=== PATIENT | female | born 1995 | race Caucasian/White ===

== ENCOUNTER 2017-01-11 09:25 | Outpatient (CLI) | payer MEDICAID ==
[~2017-01-11] VITALS: Ht 144.8 cm; Wt 69.7 kg
[2017-01-11 09:56] VITALS: Ht 144.8 cm; Wt 69.7 kg
[2017-01-11 09:58] VITALS: BP 136/86; PULSE 62; RESP 18
[2017-01-11] MEDS ORDERED: TERBUTALINE 1 MG/ML INJ SC STA (10:35)
[2017-01-11] MEDS ORDERED: LACTATED RINGER'S 1,000 ML IV* STA (10:35)
[2017-01-11 10:40] LABS: ADD UMIC YES; UR BILIRUBIN (Dip) NEGATIVE (NEGATIVE); UR BLOOD (Dip) TRACE (NEGATIVE); UR CLARITY CLEAR (CLEAR); UR COLOR LT. YELLOW (YELLOW); UR GLUCOSE (Dip) NEGATIVE (NEGATIVE); UR KETONES (Dip) NEGATIVE (NEGATIVE); UR LEUKOCYTE ESTERASE (Dip) NEGATIVE (NEGATIVE); UR NITRITE (Dip) NEGATIVE (NEGATIVE); UR TOTAL PROTEIN (Dip) 2+ (NEGATIVE); UR UROBILINOGEN (Dip) 0.2 E.U./dL (0.1-1.0)
[2017-01-11] MEDS ORDERED: LACTATED RINGER'S 1,000 ML IV* SCH (11:00)
[2017-01-11 11:28] LABS: UR SQUAMOUS EPITHELIAL CELL FEW; URINE RBCS 0-2 /HPF (0)
[2017-01-11 11:35] LABS: ADD SCAN DIFF NO
--- NOTE | 2017-01-11 11:35 | RADRPT ---
PROCEDURE: OB ultrasound for biophysical profile CLINICAL INDICATION: Poor tone. TECHNIQUE: Multiple sonographic images of the pelvis were obtained. Transabdominal views of the g ravid uterus are available for review. The images were reviewed on a PACS workstation. COMPARISON: None FINDINGS: breathing movement = 2/2 tone = 2/2 motion = 2/2 CRISTIN = 2/2 CRISTIN = 14.3 cm Single live intrauterine with cardiac activity of 128 bpm. position is cephal ic. The placenta is left lateral. IMPRESSION: 1. Single live intrauterine gestation. 2. Biophysical profile = 8/8. 3. CRISTIN = 14.3 cm. RPTAT: HH .Giulia Gale MD, MD Date Time Electronically viewed and signed by .Giulia Gale MD, on 01/11/2017 11:35 .G/
[2017-01-11 11:45] LABS: ABNORMAL IP MESSAGE 1; BASOPHILS % 0.3 % (0.0-2.0); EOSINOPHILS % 0.2 % (0.0-7.0); HEMOGLOBIN 11.5 g/dl (12.0-16.0); LYMPHOCYTES # 3.5 10^3/ul (0.8-2.9); LYMPHOCYTES % 28.4 % (18.0-55.0); MEAN CORPUSCULAR HEMOGLOBIN 30.2 pg (29.0-33.0); MEAN CORPUSCULAR HGB CONC 33.8 g/dl (32.0-37.0); MEAN CORPUSCULAR VOLUME 89.2 fl (72.0-104.0); MEAN PLATELET VOLUME 13.3 fl (7.4-10.4); NEUTROPHIL # 7.8 10^3/ul (1.6-7.5); NEUTROPHILS % 62.6 % (30.0-74.0); PLATELET COUNT 139 10^3/UL (140-415); RED BLOOD COUNT 3.81 10^6/ul (4.20-5.40); RED CELL DISTRIBUTION WIDTH 13.6 % (11.5-14.5); WHITE BLOOD COUNT 12.5 10^3/ul (4.8-10.8)
--- NOTE | 2017-01-11 11:45 | RADRPT ---
PROCEDURE: US OB. CLINICAL INDICATION: Size and dates , labor TECHNIQUE: Multiple sonographic images of the pelvis and gravid uterus were obtained. The images were reviewed on a PACS workstation. COMPARISON: No prior studies are available for comparison. FINDINGS: There is a single viable intrauterine gestation. Cardiac activity is present with 137 beats per min sandy. There is a vertex presentation. The placenta is left lateral. There is no evidence for an abruption or placenta previa. Measurements were made in order to determine age. The results are as follows: BPD =8.6 cm HC =31.1 cm AC =32.6 cm FL =6.7 cm Estimated gestational age of approximately 35 weeks and 1 day based on ultrasound measurements. Clinical age: 35 weeks and 0 days. The estimated date of delivery is 02/14/17, based on ultrasound measurements. The EFW = 2708 g, 63.4%, based on LMP age. RPTAT: AA IMPRESSION: Single viable intrauterine gestation of approximately 35 weeks and 1 day based on ultrasound measur ements. .Jeremiah Escalante MD, Date Time Electronically viewed and signed by .Jeremiah Escalante MD, MD on 01/11/2017 11:45 .S/
--- NOTE | 2017-01-11 12:19 | TRIAGE ---
OB Triage Datetime Report Generated by CPN: 01/11/2017 12:19 Datetime: 01/11/2017 12:04 Labor Evaluation Frequency: 0 Monitor Mode: External Duration (sec)2399: 0 Resting Tone [place]: Relaxed Heart Rate FHR Baseline Rate: 130 Monitor Mode: External US FHR Baseline Changes: No Baseline Change Variability: Moderate 6-25 bpm Accelerations: 15X15 Decelerations: None Category: Category I Pain Presence: None/Denies Pain Type: N/A Pain Assessment Comments: PT DENIES OF ANY PAIN 0/10 Datetime: 01/11/2017 11:12 Labor Evaluation Frequency: 0 Monitor Mode: External Duration (sec)2399: 0 Resting Tone [place]: Relaxed Heart Rate FHR Baseline Rate: 135 Monitor Mode: External US FHR Baseline Changes: No Baseline Change Variability: Moderate 6-25 bpm Accelerations: 15X15 Decelerations: None Category: Category I Datetime: 01/11/2017 10:59 Maternal Assessment Level of Consciousness: Fully Conscious DTR's/Clonus: DTRs 2+; No Clonus Headache: Denies Blurred Vision: No Nausea/Vomiting: Denies RUQ Epigastric Pain: Denies Facial Edema: None Labor Evaluation Frequency: 3-5 Monitor Mode: External Duration (sec)2399: 60-80 Quality: Mild Pattern: Normal: <= 5 Contractions in 10 Minutes Resting Tone [place]: Relaxed Heart Rate FHR Baseline Rate: 135 Monitor Mode: External US FHR Baseline Changes: No Baseline Change Variability: Moderate 6-25 bpm Accelerations: 15X15 Decelerations: None Category: Category I Membrane Status: Intact Datetime: 01/11/2017 10:22 Labor Evaluation Frequency: 3-4 Monitor Mode: External Duration (sec)2399: 60-70 Quality: Mild Pattern: Normal: <= 5 Contractions in 10 Minutes Resting Tone [place]: Relaxed Heart Rate FHR Baseline Rate: 145 Monitor Mode: External US FHR Baseline Changes: No Baseline Change Variability: Moderate 6-25 bpm Accelerations: 15X15 Decelerations: None Category: Category I Vaginal Exam Dilatation (cms): 0.5 Effacement (%): 40 Station: -3 Exam By: ALFREDO MCFADDEN Membrane Status: Intact Vaginal Bleeding: None Cervix, Consistency: Firm Cervix, Position: Posterior Presentation 'A': Unable to Assess Lie 'A': Unable to Assess Datetime: 01/11/2017 10:04 Labor Evaluation Frequency: 3-4 Monitor Mode: External Duration (sec)2399: 50-60 Quality: Mild Pattern: Normal: <= 5 Contractions in 10 Minutes Resting Tone [place]: Relaxed Heart Rate FHR Baseline Rate: 125 Monitor Mode: External US FHR Baseline Changes: No Baseline Change Variability: Moderate 6-25 bpm Accelerations: 15X15 Decelerations: None Category: Category I Membrane Status: Intact Datetime: 01/11/2017 09:46 EGA: 35.0 Datetime: 01/11/2017 09:39 Stage of : OB Triage Maternal Assessment Level of Consciousness: Fully Conscious DTR's/Clonus: DTRs 2+; No Clonus Headache: Denies Blurred Vision: No Respiratory Effort: Unlabored Breath Sounds, Left: Clear and Equal Breath Sounds, Right: Clear and Equal Nausea/Vomiting: Denies RUQ Epigastric Pain: Denies Facial Edema: None Labor Evaluation Frequency: X2 Monitor Mode: External Duration (sec)2399: 50 Quality: Mild Pattern: Normal: <= 5 Contractions in 10 Minutes Resting Tone [place]: Relaxed Heart Rate FHR Baseline Rate: 125 Monitor Mode: External US FHR Baseline Changes: No Baseline Change Variability: Moderate 6-25 bpm Accelerations: 15X15 Decelerations: None Category: Category I Pain Assessment Pain Scale: 5 Pain Presence: Intermittent Pain Type: Contraction Pain Location: Abdomen; Back Pain Goal: 0 Pain Relief Measures: Comfort Measures Membrane Status: Intact Datetime: 01/11/2017 09:15 Time of Arrival: 01/11/2017 09:15 Arrived By: Wheelchair Arrived From: Home Chief Complaint: R/O LABOR Movement: Present Contractions: Irregular Time Contractions Began: 01/11/2017 03:00 Contractions: 6 Rupture of Membranes: Denies Vaginal Bleeding: None Vaginal Discharge: Present Recent Sexual Intercouse: Denies Abdominal Trauma: Not Applicable Patient Complaints: Contractions Time Provider Notified: 01/11/2017 09:45 Provider Notified: YUKI Initial Plan: US BPP, CRISTIN, UA, CBC, TERB X1, IV HYDRATION
== END 2017-01-11 12:47 | disposition home or self-care (01) ==
LOC: L-D 09:25 → OBT 09:25
PROVIDERS: ATTEND Obstetrics & Gynecology
DX: O62.8 Other abnormalities of forces of labor (principal); Z3A.39 39 weeks gestation of pregnancy
CPT/HCPCS: 76815; 76818; 81001; 85025; 96360; 96361; J3105; J7120; Z7500; G0463

== ENCOUNTER 2017-01-12 02:20 | Inpatient (IN) | payer MEDICAID ==
[~2017-01-12] VITALS: Ht 147.3 cm; Wt 70.6 kg
[2017-01-12] MEDS ORDERED: LACTATED RINGER'S 1,000 ML IV PRN (03:00)
[2017-01-12] MEDS ORDERED: OXYTOCIN 30 UNITS/LR 500 ML IV PRN ×2 (03:00→17:30)
[2017-01-12] MEDS ORDERED: OXYTOCIN 30 UNITS/LR 500 ML IV SCH ×2 (03:00)
[2017-01-12] MEDS ORDERED: MISOPROSTOL 200 MCG TAB PR PRN ×2 (03:00→17:30)
[2017-01-12] MEDS ORDERED: LIDOCAINE 1% (MPF) 30 ML INJ INJ PRN (03:00)
[2017-01-12] MEDS ORDERED: METHYLERGONOVINE 0.2 MG INJ IM PRN ×2 (03:00→17:30)
[2017-01-12] MEDS ORDERED: CARBOPROST 250 MCG INJ IM PRN ×2 (03:00→17:30)
[2017-01-12] MEDS ORDERED: IBUPROFEN 600 MG TAB PO PRN (03:00)
[2017-01-12 03:26] VITALS: Ht 147.3 cm; Wt 70.6 kg
[2017-01-12 03:27] VITALS: BP 151/94; PULSE 51; RESP 19
[2017-01-12] MEDS: LACTATED RINGER'S 1,000 ML IV SCH ×2 (03:30→12:04)
[2017-01-12 03:45] LABS: ADD SCAN DIFF NO
[2017-01-12 03:53] LABS: ADD UMIC YES; URINE BILIRUBIN (Dip) NEGATIVE (NEGATIVE); URINE BLOOD (Dip) TRACE (NEGATIVE); URINE COLOR LT. YELLOW (YELLOW); URINE GLUCOSE (Dip) NEGATIVE (NEGATIVE); URINE KETONES (Dip) NEGATIVE (NEGATIVE); URINE LEUKOCYTE ESTERASE (Dip) TRACE (NEGATIVE); URINE NITRITE (Dip) NEGATIVE (NEGATIVE); URINE TOTAL PROTEIN (Dip) 1+ (NEGATIVE); URINE UROBILINOGEN (Dip) 0.2 E.U./dL (0.1-1.0)
[2017-01-12 04:01] LABS: BACTERIA,URINE FEW; SQUAMOUS EPITHELIAL CELL,UR FEW; URINE RBCS 0-2 /HPF (0)
[2017-01-12 04:08] LABS: INR 0.94; PROTIME 12.6 Sec (12.2-14.2)
[2017-01-12 04:16] LABS: PARTIAL THROMBOPLASTIN TIME 28.7 Sec (25.0-35.0)
[2017-01-12 04:17] LABS: ABNORMAL IP MESSAGE 1; BASOPHIL # 0.1 10^3/ul (0.0-0.1); BASOPHILS % 0.4 % (0.0-2.0); EOSINOPHILS % 0.2 % (0.0-7.0); HEMATOCRIT 33.1 % (37.0-47.0); HEMOGLOBIN 11.4 g/dl (12.0-16.0); MEAN CORPUSCULAR HEMOGLOBIN 30.5 pg (29.0-33.0); MEAN CORPUSCULAR HGB CONC 34.4 g/dl (32.0-37.0); MEAN CORPUSCULAR VOLUME 88.5 fl (72.0-104.0); MEAN PLATELET VOLUME 13.7 fl (7.4-10.4); MONOCYTES % 8.4 % (0.0-13.0); NEUTROPHIL # 8.2 10^3/ul (1.6-7.5); NEUTROPHILS % 66.4 % (30.0-74.0); PLATELET COUNT 155 10^3/UL (140-415); RED BLOOD COUNT 3.74 10^6/ul (4.20-5.40); RED CELL DISTRIBUTION WIDTH 13.3 % (11.5-14.5); WHITE BLOOD COUNT 12.4 10^3/ul (4.8-10.8)
[2017-01-12] MEDS: BUTORPHANOL 2 MG INJ IV PRN ×2 (04:17→06:32)
[2017-01-12 04:18] LABS: ALANINE AMINOTRANSFERASE 31 IU/L (13-69); ALBUMIN 3.6 g/dl (3.3-4.9); ALBUMIN/GLOBULIN RATIO 1.09; ALKALINE PHOSPHATASE 303 IU/L (42-121); ANION GAP 12 (8-16); ASPARTATE AMINO TRANSFERASE 34 IU/L (15-46); BILIRUBIN,INDIRECT 0.2 mg/dl (0-1.1); BILIRUBIN,TOTAL 0.2 mg/dl (0.2-1.3); BLOOD UREA NITROGEN 9 mg/dl (7-20); CALCIUM 8.9 mg/dl (8.4-10.2); CARBON DIOXIDE 20 mmol/L (21-31); CHLORIDE 112 mmol/L (97-110); GLUCOSE 77 mg/dl (70-220); POTASSIUM 4.2 mmol/L (3.5-5.1); SODIUM 140 mmol/L (135-144); TOTAL PROTEIN 6.9 g/dl (6.1-8.1); URIC ACID 5.1 mg/dl (3.1-7.9)
[2017-01-12 13:07] LABS: ADD SCAN DIFF NO
[2017-01-12 13:08] LABS: BASOPHILS % 0.2 % (0.0-2.0); EOSINOPHILS % 0.1 % (0.0-7.0); HEMATOCRIT 34.7 % (37.0-47.0); HEMOGLOBIN 11.9 g/dl (12.0-16.0); MEAN CORPUSCULAR HEMOGLOBIN 30.7 pg (29.0-33.0); MEAN CORPUSCULAR HGB CONC 34.3 g/dl (32.0-37.0); MEAN CORPUSCULAR VOLUME 89.4 fl (72.0-104.0); MEAN PLATELET VOLUME 12.8 fl (7.4-10.4); MONOCYTE # 1.2 10^3/ul (0.3-0.9); MONOCYTES % 7.4 % (0.0-13.0); NEUTROPHIL # 13.3 10^3/ul (1.6-7.5); NEUTROPHILS % 79.8 % (30.0-74.0); PLATELET COUNT 177 10^3/UL (140-415); RED BLOOD COUNT 3.88 10^6/ul (4.20-5.40); RED CELL DISTRIBUTION WIDTH 13.6 % (11.5-14.5); WHITE BLOOD COUNT 16.7 10^3/ul (4.8-10.8)
[2017-01-12] MEDS ORDERED: MINERAL OIL LIGHT 10 ML VIAL TOP ONE (13:30)
[2017-01-12 13:34] LABS: INR 0.9; PROTIME 12.1 Sec (12.2-14.2); PT RATIO 0.9
[2017-01-12 13:35] LABS: PARTIAL THROMBOPLASTIN TIME 29.1 Sec (25.0-35.0)
[2017-01-12 13:48] LABS: ALBUMIN/GLOBULIN RATIO 1.29; BILIRUBIN,INDIRECT 0.2 mg/dl (0-1.1); BILIRUBIN,TOTAL 0.2 mg/dl (0.2-1.3); CALCIUM 8.6 mg/dl (8.4-10.2); CREATININE 0.68 mg/dl (0.44-1.00); POTASSIUM 4.3 mmol/L (3.5-5.1); TOTAL PROTEIN 7.1 g/dl (6.1-8.1); URIC ACID 5.5 mg/dl (3.1-7.9)
[2017-01-12] MEDS ORDERED: MINERAL OIL 30ML CUP PO ONE (14:00)
[2017-01-12] MEDS ORDERED: TERBUTALINE 1 ML ONE (14:06)
[2017-01-12] MEDS ORDERED: TERBUTALINE 1 MG/ML INJ SC ONE (14:30)
--- NOTE | 2017-01-12 15:48 | HP ---
Date/Time of Note Date/Time of Note DATE: 01/12/17 TIME: 15:45 OB - History Hx of Present Free Text/Dictation 21 y/o female admitted in labor Last Menstrual Period: Apr 11, 2016 Estimated Due Date: Jan 16, 2017 : 1 Para: 0 Care: Good Care Ultrasounds: Normal mid trimester US Obstetrical Complications: None Medical Complications: None Past Family/Social History * Past Medical, Surgical, Family and Obstetric Histories reviewed from chart. Blood Type: O+ Rubella: immune RPR/VDRL: Negative GBS Status: Negative HBsAG: Negative OB Admission Exam Vital Signs Vital Signs Vital Signs Date Time Temp Pulse Resp B/P Pulse Ox O2 Delivery O2 Flow Rate FiO2 01/12/17 03:27 97.9 51 19 151/94 Room Air Physical Exam HEENT: WNL Heart: Rhythm Normal Lungs: Clear, Equal Abdomen: WNL Extremities: Normal Reflexes: Normal Cervical Dilatation: 3cm Effacement: 100% Station: -2 Membranes: Intact Heart Rate: 140's Accelerations: Accelerations Present Decelerations: No Decelerations Varibility: Marked Contractions on Admission: < 5 Minutes Apart Date/Time Contractions Began: 01/12/17 Frequency of Contractions: q5 min Duration: >60 seconds Intensity: Moderate Last 72 hours Lab Results CBC & BMP 01/12/17 03:20 01/12/17 13:00 Liver Function Test 01/12/17 03:20 01/12/17 13:00 Alanine Aminotransferase (ALT/SGPT) 31 35 Albumin 3.6 4.0 Alkaline Phosphatase 303 H 331 H Aspartate Amino Transf (AST/SGOT) 34 34 Direct Bilirubin 0.00 0.00 Total Protein 6.9 7.1 OB Assessment/Plan Other Assessment: term gestation labor pains Other plan: proceed with labor LOYDA ARREDONDO MD Jan 12, 2017 15:48
--- NOTE | 2017-01-12 15:53 | LDN ---
Date/Time of Note Date/Time of Note DATE: 01/12/17 TIME: 15:49 Delivery Summary of a viable infant over intact perineum Weeks of Gestation 39+ Placenta Delivered: Spontaneously, Intact & Complete Meconium: none Episiotomy: No Perineal laceration: 1 Laceration repair: 1st degree perineal laceration was repaired in layers with 2 0 Vicryl and 2 0 Chromic Anesthesia type: Local Estimated blood loss: 300 Sponge & Needle done & correct: Yes All needle counts correct: Yes Any foreign bodies felt in the: No Problems: Infant Delivery Information Sex Infant Sex: male Apgars 1 Minute: 9 5 Minute: 9 Suctioning Nose & mouth suctioned at dora: Yes Delee suction performed: No Umbilical Cord Umbilical cord with: 3 Vessels Cord presentations: nuchal cord Nuchal cord present X: 2 Cord Blood was obtained: Yes Mother & Baby Disposition Disposition Mom & Baby to Maternity; Good: Yes (mother and baby were recovered in good condition ) Mom transferred to: Other (maternity ) Baby to NICU: No LOYDA ARREDONDO MD Jan 12, 2017 15:53
[2017-01-12 16:00] LABS: ADD UMIC YES; URINE BLOOD (Dip) 3+ (NEGATIVE); URINE COLOR YELLOW (YELLOW); URINE GLUCOSE (Dip) NEGATIVE (NEGATIVE); URINE KETONES (Dip) NEGATIVE (NEGATIVE); URINE LEUKOCYTE ESTERASE (Dip) TRACE (NEGATIVE); URINE NITRITE (Dip) NEGATIVE (NEGATIVE); URINE TOTAL PROTEIN (Dip) 4+ (NEGATIVE); URINE UROBILINOGEN (Dip) 1.0 E.U./dL (0.1-1.0)
[2017-01-12 16:14] LABS: URINE BILIRUBIN (Dip) NEGATIVE (NEGATIVE)
[2017-01-12 16:17] LABS: BACTERIA,URINE MODERATE; SQUAMOUS EPITHELIAL CELL,UR MANY; URINE RBCS >200 /HPF (0)
[2017-01-12 17:10] VITALS: BP 138/72; PULSE 64; RESP 20
[2017-01-12] MEDS ORDERED: BENZOCAINE 20% 56 ML SPRAY TOP PRN (17:30)
[2017-01-12] MEDS ORDERED: ACETAMINOPHEN/CODEINE #3 TAB PO PRN ×2 (17:30)
[2017-01-12] MEDS ORDERED: LANOLIN 7 GM TUBE TOP PRN (17:30)
[2017-01-12] MEDS ORDERED: WITCH HAZEL/GLYCERIN PAD PR PRN (17:30)
[2017-01-12] MEDS ORDERED: ZOLPIDEM 5 MG TAB PO PRN (17:30)
[2017-01-12] MEDS ORDERED: DIBUCAINE 1% 30 GM OINT PR PRN (17:30)
[2017-01-12] MEDS: LACTATED RINGER'S 1,000 ML IV* SCH (17:44)
[2017-01-12] MEDS: IBUPROFEN 600 MG TAB PO SCH ×2 (18:00→23:47)
[2017-01-12 20:00] VITALS: BP 147/67; PULSE 70; RESP 19
[2017-01-12] MEDS: SENNA/DOCUSATE NA (8.6MG/50MG) TAB PO SCH (21:25)
[2017-01-12] MEDS: MAGNESIUM HYDROXIDE 30ML CUP PO SCH (21:25)
[2017-01-13] MEDS: LACTATED RINGER'S 1,000 ML IV* SCH ×3 (01:12→17:14)
[2017-01-13 04:00] VITALS: BP 118/73; PULSE 56; RESP 17
[2017-01-13] MEDS: IBUPROFEN 600 MG TAB PO SCH ×3 (05:44→18:03)
[2017-01-13 07:36] LABS: ADD SCAN DIFF NO
[2017-01-13 07:39] LABS: ABNORMAL IP MESSAGE 1; BASOPHILS % 0.2 % (0.0-2.0); EOSINOPHILS # 0.1 10^3/ul (0.0-0.5); EOSINOPHILS % 0.3 % (0.0-7.0); HEMOGLOBIN 8.7 g/dl (12.0-16.0); LYMPHOCYTES % 24.2 % (18.0-55.0); MEAN CORPUSCULAR HEMOGLOBIN 30.3 pg (29.0-33.0); MEAN CORPUSCULAR HGB CONC 33.5 g/dl (32.0-37.0); MEAN CORPUSCULAR VOLUME 90.6 fl (72.0-104.0); MEAN PLATELET VOLUME 13.1 fl (7.4-10.4); MONOCYTE # 1.7 10^3/ul (0.3-0.9); MONOCYTES % 10.5 % (0.0-13.0); NEUTROPHIL # 10.5 10^3/ul (1.6-7.5); NEUTROPHILS % 64.2 % (30.0-74.0); PLATELET COUNT 127 10^3/UL (140-415); RED BLOOD COUNT 2.87 10^6/ul (4.20-5.40); RED CELL DISTRIBUTION WIDTH 13.6 % (11.5-14.5); WHITE BLOOD COUNT 16.4 10^3/ul (4.8-10.8)
[2017-01-13 08:00] VITALS: BP 130/73; PULSE 82; RESP 18
[2017-01-13] MEDS: SENNA/DOCUSATE NA (8.6MG/50MG) TAB PO SCH ×2 (09:04→21:55)
[2017-01-13] MEDS: MAGNESIUM HYDROXIDE 30ML CUP PO SCH ×2 (09:04→21:55)
[2017-01-13 16:00] VITALS: BP 127/88; PULSE 56; RESP 18
--- NOTE | 2017-01-13 18:38 | DS ---
Date/Time of Note Date/Time of Note home next day DATE: 01/13/17 TIME: 18:37 Obstetrical Discharge Record Final Diagnosis Final Diagnosis: Term delivered Other Final Diagnosis S/P vaginal delivery Vaginal Delivery Obstetrical Delivery: Spontaneous, Laceration, Repaired Condition on Discharge Physical Assessment Last Vitals: see nurses notes Voiding: Yes Bowel Movement: Yes Breast: Soft, non-tender, Filling Fundus: Firm Abdomen and Incision: soft BS + Episiotomy: perineum : healing Calf Tenderness: No Patient Condition: Good LOYDA ARREDONDO MD Jan 13, 2017 18:38
--- NOTE | 2017-01-13 18:40 | PD.PPDC ---
[employer] Discharge Instruction Provider Information Physician Information 21 y/o female had vaginal delivery Condition Patient Condition: Good Diet Diet: Resume Regular Diet Activity/Restrictions Activity: Normal Activity May Shower Restrictions: Nothing in the Vagina Return to Work or School: Mar 01, 2017 Follow-up Follow-up with Physician: Week/Weeks (in clinic) Return to clinic for OB Instructions: Breast Tenderness Depression LOYDA ARREDONDO MD Jan 13, 2017 18:40
[2017-01-13] MEDS ORDERED: IBUP-1542 PO (18:41)
[2017-01-13 20:00] VITALS: BP 149/84; PULSE 54; RESP 18
[2017-01-14] MEDS: LACTATED RINGER'S 1,000 ML IV* SCH (00:48)
[2017-01-14] MEDS: IBUPROFEN 600 MG TAB PO SCH ×3 (00:48→12:11)
[2017-01-14 04:00] VITALS: BP 133/75; PULSE 58; RESP 18
[2017-01-14 06:38] LABS: ADD SCAN DIFF NO
[2017-01-14 06:44] LABS: ABNORMAL IP MESSAGE 1; BASOPHILS % 0.2 % (0.0-2.0); EOSINOPHILS # 0.1 10^3/ul (0.0-0.5); EOSINOPHILS % 0.4 % (0.0-7.0); HEMATOCRIT 26.2 % (37.0-47.0); HEMOGLOBIN 8.8 g/dl (12.0-16.0); LYMPHOCYTES # 3.7 10^3/ul (0.8-2.9); LYMPHOCYTES % 22.4 % (18.0-55.0); MEAN CORPUSCULAR HEMOGLOBIN 30.6 pg (29.0-33.0); MEAN CORPUSCULAR HGB CONC 33.6 g/dl (32.0-37.0); MEAN PLATELET VOLUME 12.8 fl (7.4-10.4); MONOCYTE # 1.7 10^3/ul (0.3-0.9); MONOCYTES % 10.3 % (0.0-13.0); NEUTROPHIL # 10.7 10^3/ul (1.6-7.5); PLATELET COUNT 125 10^3/UL (140-415); RED BLOOD COUNT 2.88 10^6/ul (4.20-5.40); RED CELL DISTRIBUTION WIDTH 13.9 % (11.5-14.5); WHITE BLOOD COUNT 16.3 10^3/ul (4.8-10.8)
[2017-01-14 08:05] VITALS: BP 116/81; PULSE 47; RESP 16
[2017-01-14] MEDS ORDERED: VARICELLA VACCINE LIVE/PF 1,350 UNIT/0.5 ML ML SC* ONE (09:00)
[2017-01-14] MEDS ORDERED: DIPHTH/TET/ACEL PERTUSS (ADULT) 0.5 ML VIAL IM* ONE (09:00)
[2017-01-14] MEDS ORDERED: MEASLES,MUMPS,RUBELLA VACCINE INJ SC* ONE (09:00)
[2017-01-14] MEDS: MAGNESIUM HYDROXIDE 30ML CUP PO SCH (09:59)
[2017-01-14] MEDS: SENNA/DOCUSATE NA (8.6MG/50MG) TAB PO SCH (09:59)
== END 2017-01-14 13:40 | disposition home or self-care (01) | DRG 775 ==
LOC: L-D 02:20 → OBT 02:20 → L-D 02:46 → OBT 02:46 → PP1 17:04
PROVIDERS: ADMIT Obstetrics & Gynecology; ATTEND Obstetrics & Gynecology
PROC: 10E0XZZ Delivery of Products of Conception, External Approach (ICD-10-PCS; principal; 2017-01-12)
PROC: 0HQ9XZZ Repair Perineum Skin, External Approach (ICD-10-PCS; 2017-01-12)
PROC: 3E00X4Z Introduction of Serum, Toxoid and Vaccine into Skin and Mucous Membranes, External Approach (ICD-10-PCS; 2017-01-14)
DX: O70.0 First degree perineal laceration during delivery (principal); O69.81X0 Labor and delivery complicated by cord around neck, without compression, not applicable or unspecified; Z23 Encounter for immunization; Z3A.39 39 weeks gestation of pregnancy; Z37.0 Single live birth
CPT/HCPCS: 80053; 81001; 84560; 85025; 85384; 85610; 85730; 86592; 86900; 86901; 87340; 90715; 90716; G0463; J0595; J2590; J3105; J7120